=== PATIENT | male | born 1965 | race African-American/Black ===

== ENCOUNTER → 2017-08-05 | Outpatient (CLI) | payer OTHER ==
[~2017-08-05] MED LIST: AMLO10TA2 PO; CLON0.2T PO; FISH1000; NYSTCRE29 TOPICAL
[2017-08-05 16:42] LABS: CHLAMYDIA PCR NOT DETECTED (NOT DETECT)
[2017-08-05 16:43] LABS: NEISSERIA PCR NOT DETECTED (NOT DETECT)
== END ==
LOC: CLAB 12:18
PROVIDERS: ATTEND Family Medicine
DX: N48.89 Other specified disorders of penis (principal)
CPT/HCPCS: 87491; 87591